=== PATIENT | male | born 1970 | race Caucasian/White ===

== ENCOUNTER 2021-08-11 23:58 | Inpatient (IN) | payer BC ==
[2021-08-12] MEDS ORDERED: Diltiazem 125 MG/25 ML ONE (00:12)
[2021-08-12 00:21] LABS: #Basophils 0.1 thou/uL (0.0-0.2); #Eosinphils 0.1 thou/uL (0.0-0.7); #Lymphocytes 1.3 thou/uL (1.20-3.40); #Monocytes 1.2 thou/uL (0.11-0.59); #Neutrophils 9.5 thou/uL (1.40-6.50); %Basophils 0.6 % (0.0-1.0); %Eosinophils 0.7 % (0.0-10.0); %Lymphocytes 10.6 % (21.0-51.0); %Monocytes 9.8 % (0.0-10.0); %Neutrophils 78.3 % (42.0-75.0); Hemoglobin 16.4 g/dL (14.0-18.0); Mean Corpuscular HGB CONC 33.4 g/dL (32.0-36.0); Mean Corpuscular Volume 98.9 fL (78.0-98.0); Mean Platelet Volume 7.1 fL (7.4-10.4); Platelet Count 316 thou/uL (130-400); RBC Distribution Width 12.6 % (11.5-14.5); Red Blood Cell (RBC) Count 4.96 mill/uL (4.70-6.10); White Blood Cell (WBC) Count 12.1 thou/uL (4.8-10.8)
[2021-08-12 00:42] LABS: Acetaminophen Less than 10.0 mcg/mL (10.0-30.0); Alcohol Less than 10 mg/dL (Less than 10); Magnesium 2.1 mg/dL (1.6-2.6); Salicylate Less than 8.0 mg/dL (15.0-30.0)
[2021-08-12 00:43] LABS: ALT (SGPT) 31 U/L (8-55); AST (SGOT) 25 U/L (5-34); Alkaline Phosphatase 48 U/L (40-110); Anion Gap 12 mmol/L (10-20); BUN (Urea Nitrogen) 22 mg/dL (8.9-20.6); Bilirubin, Total 0.2 mg/dL (0.2-1.2); Calc. Creatinine Clearance 0 mL/min (70-130); Calcium 9.4 mg/dL (7.8-10.44); Carbon Dioxide 29 mmol/L (22-29); Chloride 101 mmol/L (98-107); Globulin 2.6 g/dL (2.4-3.5); Glucose 129 mg/dL (70-105); Potassium 4.1 mmol/L (3.5-5.1); Protein, Total 6.6 g/dL (6.0-8.3); Sodium 138 mmol/L (136-145)
[2021-08-12 01:55] LABS: Amphetamine Detected (NotDetected); Barbiturates Screen Not Detected (NotDetected); Benzodiazepine Screen Not Detected (NotDetected); Cocaine Metabolite Screen Not Detected (NotDetected); Methadone Not Detected (NotDetected); Methamphetamine Not Detected (NotDetected); Opiate Screen Not Detected (NotDetected); Oxycodone Screen Not Detected (NotDetected); Phencyclidine (PCP) Not Detected (NotDetected); THC/Cannabinoid Screen Detected (NotDetected); Tricyclic Screen Not Detected (NotDetected)
[2021-08-12] MEDS ORDERED: Metoprolol Tartrate 5 MG/5 ML VIAL IVP PRN (02:01)
[2021-08-12] MEDS ORDERED: Ondansetron PF 4 MG/2 ML Vial IVP PRN (02:30)
[2021-08-12] MEDS ORDERED: Acetaminophen 325 MG TAB PO PRN (02:30)
[2021-08-12] MEDS ORDERED: Acetaminophen 650 MG Suppository PR PRN (02:30)
[2021-08-12] MEDS ORDERED: Ondansetron ODT 4 MG TAB PO PRN (02:30)
[2021-08-12] MEDS ORDERED: Metoprolol Tartrate 5 MG/5 ML VIAL ONE (02:41)
[2021-08-12 03:24] LABS: #Basophils 0.1 thou/uL (0.0-0.2); #Lymphocytes 1.1 thou/uL (1.20-3.40); #Monocytes 0.7 thou/uL (0.11-0.59); #Neutrophils 9.6 thou/uL (1.40-6.50); %Basophils 0.5 % (0.0-1.0); %Eosinophils 0.2 % (0.0-10.0); %Lymphocytes 9.7 % (21.0-51.0); %Monocytes 6.4 % (0.0-10.0); %Neutrophils 83.2 % (42.0-75.0); Hemoglobin 15.7 g/dL (14.0-18.0); Mean Corpuscular HGB CONC 33.4 g/dL (32.0-36.0); Mean Corpuscular Hemoglobin 32.6 pg (27.0-31.0); Mean Corpuscular Volume 97.6 fL (78.0-98.0); Mean Platelet Volume 6.7 fL (7.4-10.4); Platelet Count 339 thou/uL (130-400); RBC Distribution Width 12.6 % (11.5-14.5); Red Blood Cell (RBC) Count 4.83 mill/uL (4.70-6.10); White Blood Cell (WBC) Count 11.5 thou/uL (4.8-10.8)
[2021-08-12 03:44] LABS: Anion Gap 13 mmol/L (10-20); BUN (Urea Nitrogen) 22 mg/dL (8.9-20.6); Calc. Creatinine Clearance 0 mL/min (70-130); Calcium 8.6 mg/dL (7.8-10.44); Carbon Dioxide 23 mmol/L (22-29); Chloride 105 mmol/L (98-107); Glucose 116 mg/dL (70-105); Potassium 4.2 mmol/L (3.5-5.1); Sodium 137 mmol/L (136-145)
[2021-08-12 03:48] LABS: Troponin I 0.011 ng/mL (< 0.028)
[2021-08-12 04:23] LABS: Hemoglobin A1c 5.2 % (4.0-6.0)
[2021-08-12 04:57] VITALS: BMI 25.2
[2021-08-12] MEDS ORDERED: Enoxaparin Sodium 100 MG/ML SYRINGE SC SCH (05:00)
[2021-08-12 05:10] LABS: SARS-CoV-2 NAA Rapid Test Not Detected (NotDetected)
[2021-08-12] MEDS: Sodium Chloride 0.9% 1,000 ML IV SCH ×2 (05:17→14:45)
[2021-08-12 06:59] LABS: Troponin I Less than 0.010 ng/mL (< 0.028)
[2021-08-12 07:43] LABS: Bilirubin Negative (Negative); Blood, Urine Negative (Negative); Glucose, Urine (Dipstick) Negative (Negative); Ketone, Urine Negative (Negative); Leukocyte Negative (Negative); Nitrite Negative (Negative); Protein, Urine (Dipstick) Negative (Neg-Trace); Specific Gravity, Urine 1.015 (1.005-1.030); Urobilinogen 0.2 mg/dL (Less than 2); pH, Urine 7.5 (5.0-9.0)
[2021-08-12 07:54] LABS: Clarity Clear (Clear)
[2021-08-12 07:58] LABS: RBC/HPF 0-3 HPF (0-3); WBC/HPF 0-3 HPF (0-3)
[2021-08-12 07:59] LABS: Squamous Epithelial 0-3 HPF (0-3)
[2021-08-12] MEDS: Pantoprazole 40 MG VIAL IVP SCH (09:37)
[2021-08-12] MEDS ORDERED: Iopamidol 370 76% 100 ML VIAL ONE (09:39)
[2021-08-12] MEDS: Enoxaparin Sodium 100 MG/ML SYRINGE SC SCH ×2 (09:46→21:24)
[2021-08-12] MEDS: Dronedarone HCl 400 MG TAB PO SCH (16:38)
[2021-08-12] MEDS ORDERED: DULoxetine 60 MG CAP PO SCH (21:00)
[2021-08-13] MEDS: Sodium Chloride 0.9% 1,000 ML IV SCH (01:21)
[2021-08-13] MEDS: Dronedarone HCl 400 MG TAB PO SCH ×2 (08:17→17:18)
[2021-08-13] MEDS: Pantoprazole 40 MG VIAL IVP SCH (08:18)
[2021-08-13 08:30] VITALS: TEMP 97.8
[2021-08-13] MEDS ORDERED: Doxycycline 100 MG CAP PO SCH (09:00)
[2021-08-13] MEDS ORDERED: Loratadine 10 MG TAB PO SCH (09:00)
[2021-08-13] MEDS ORDERED: Aspirin 81 mg Enteric Coated Tablet PO SCH (09:00)
[2021-08-13] MEDS ORDERED: LEVOTHYROXINE 175 MCG PO SCH (09:00)
[2021-08-13] MEDS ORDERED: Fluticasone Propionate Nasal Spray 16 gm Bottle NASAL SCH (09:00)
[2021-08-13] MEDS ORDERED: Regadenoson 0.4 MG/5 ML SYRINGE ONE (11:19)
[2021-08-13] MEDS: Enoxaparin Sodium 100 MG/ML SYRINGE SC SCH (11:50)
[2021-08-13 14:47] LABS: #Basophils 0.1 thou/uL (0.0-0.2); #Eosinphils 0.1 thou/uL (0.0-0.7); #Lymphocytes 1.1 thou/uL (1.20-3.40); #Neutrophils 5.4 thou/uL (1.40-6.50); %Basophils 1.1 % (0.0-1.0); %Eosinophils 1.4 % (0.0-10.0); %Lymphocytes 14.8 % (21.0-51.0); %Monocytes 12.3 % (0.0-10.0); %Neutrophils 70.4 % (42.0-75.0); Hemoglobin 16.3 g/dL (14.0-18.0); Mean Corpuscular HGB CONC 33.3 g/dL (32.0-36.0); Mean Corpuscular Hemoglobin 33.1 pg (27.0-31.0); Mean Corpuscular Volume 99.3 fL (78.0-98.0); Mean Platelet Volume 6.5 fL (7.4-10.4); Platelet Count 319 thou/uL (130-400); RBC Distribution Width 12.8 % (11.5-14.5); Red Blood Cell (RBC) Count 4.92 mill/uL (4.70-6.10); White Blood Cell (WBC) Count 7.7 thou/uL (4.8-10.8)
[2021-08-13] MEDS ORDERED: Diltiazem 125 MG in Sodium Chloride 0.9% 100 ML IVPB SCH (15:00)
[2021-08-13] MEDS ORDERED: Diltiazem HCl 125 MG in Premix Bag 1 BAG IVPB SCH (15:00)
[2021-08-13 15:36] LABS: Anion Gap 8 mmol/L (10-20); BUN (Urea Nitrogen) 12 mg/dL (8.9-20.6); Calc. Creatinine Clearance 103 mL/min (70-130); Calcium 8.8 mg/dL (7.8-10.44); Carbon Dioxide 30 mmol/L (22-29); Chloride 104 mmol/L (98-107); Glucose 85 mg/dL (70-105); Potassium 3.7 mmol/L (3.5-5.1); Sodium 138 mmol/L (136-145)
[2021-08-13 19:41] VITALS: BP 134/85
== END 2021-08-13 19:35 | disposition home or self-care (01) | DRG 309 ==
LOC: ERS 23:58 → 2NO 08-12 03:29
PROVIDERS: ADMIT Internal Medicine; ATTEND Internal Medicine
DX: I48.0 Paroxysmal atrial fibrillation (principal); N17.9 Acute kidney failure, unspecified; Z20.822 Contact with and (suspected) exposure to COVID-19; K21.9 Gastro-esophageal reflux disease without esophagitis; D72.829 Elevated white blood cell count, unspecified; F43.10 Post-traumatic stress disorder, unspecified; F17.210 Nicotine dependence, cigarettes, uncomplicated; I42.9 Cardiomyopathy, unspecified; Z79.899 Other long term (current) drug therapy
CPT/HCPCS: 36415; 71045; 71275; 78452; 80048; 80053; 80061; 80306; 80307; 81001; 82550; 83036; 83735; 83880; 84443; 84484; 85025; 93005; 93010; 93017; 93306; A9500; C9113; J1650; J2785; J7050; Q9967; U0002